=== PATIENT | female | born 1960 | race Caucasian/White ===

== ENCOUNTER → 2017-03-14 20:53 | Observation (INO) ==
[2017-03-14 17:01] VITALS: BP 133/74; RESP 18; TEMP 100.9; O2SAT 93
--- NOTE | 2017-03-14 17:08 | History & Physical Report ---
History of Present Illness Date: 03/14/17 Chief complaint: fever HPI: Lo Shirley is a 56 year old woman who presented to Dr. Fabian's office on 03/14/17 to establish care and to be checked out for intermittent subjective fever, intermittent nonproductive cough for the last two weeks. In the clinic, she had a fever of [address] Fabian ordered a KUB and CXR. The CXR showed right upper lobe collapse with a cavitary lesion, and arrangements were made for direct admission. Lo also reports occasional mild headaches and occasional lightheadedness. Food has been tasting terrible and her appetite has declined but she denies nausea, vomiting, diarrhea, or constipation. She has had on and off dull epigastric pain. She's also had some mid-back pain. She's been tired and fatigued. She denies any sick exposures - her friend (also named Lo) reports that her had a staph abscess a few weeks ago, but the patient doesn't think she had any exposure. She works as a outside medical sales representative, but most of her work is done from home and she only goes to the office 1 day per week. She denies chest pain, palpitations, congestion, sore throat, dysphagia, neck pain/stiffness, swelling or masses, rashes, bruising, dysuria, bleeding (GI or otherwise), leg swelling, body aches, or joint swelling. She has been overall healthy and is not on any prescription medications. Review of Systems All systems PM: 10-point ROS was reviewed, no additional remarkable complaints except - Constitutional Constitutional: Present: as per HPI, fatigue, fever(s), headache(s) - EENMT Eyes: Present: requires corrective lenses Nose: Absent: obstruction Mouth/Throat: Absent: sore throat, changes in swallowing, painful swallowing - Cardiovascular Cardiovascular: Absent: chest pain, palpitations, syncope Vascular: Absent: pedal edema - Respiratory Respiratory: Present: cough. Absent: dyspnea, dyspnea on exertion, wheezing - Gastrointestinal Gastrointestinal: Present: abdominal pain. Absent: change in stool character, constipation, diarrhea, dyspepsia, melena, nausea, vomiting - Genitourinary Genitourinary: Absent: dysuria Menstruation: post menopausal - Musculoskeletal Musculoskeletal: Present: back pain. Absent: abnormal gait, joint swelling - Integumentary/Breasts Integumentary: Absent: rash, wounds - Neurological Neurological: Present: headache(s). Absent: abnormal gait, abnormal speech, confusion, frequent falls, numbness, paresthesias - Psychiatric Psychiatric: Absent: abnormal sleep pattern, anxiety - Endocrine Endocrine: Absent: palpitations - Hematologic/Lymphatic Hematologic/Lymphatic: Absent: easy bleeding, easy bruising PFSH Denies Surgical History: . Appendectomy. Tonsillectomy Family History: Mother of lung cancer age 75. Also had DM. Father of CAD age 75. 1 younger brother - healthy. 1 half-sister - Crohn's MGF - DM MGM - of old age. PGF - unknown cancer PGM - of old age. - Social History Smoking status: Current every day smoker Packs per day: 1 Packs-years: 38 Substance use type: marijuana (occ. ) Alcohol intake frequency: does not drink Household members: spouse Current occupational status: employed Current occupation: outside medical sales representative - [employer] Social history: Has a cat and 2 dogs at home, up to date on immunizations. No recent travel. Medications Home Medications Medication Instructions Recorded Confirmed Type No known Home medications [No home 03/14/17 03/14/17 History meds] Allergies Allergy/AdvReac Type Severity Reaction Status Date / Time No Known Allergies Allergy Verified 03/14/17 17:03 Exam Vital Signs: Temperature 100.9 F H 03/14/17 16:59 Pulse Rate 118 H 03/14/17 16:59 Respiratory Rate 18 03/14/17 16:59 Blood Pressure 133/74 03/14/17 16:59 Pulse Oximetry 93 03/14/17 16:59 - Constitutional Present: no acute distress, well nourished, well developed - Routine HEENT Exam Head: Present: normocephalic, atraumatic Eye: Present: PERRL. Absent: conjunctival icterus, scleral injection ENT: Present: mucous membranes moist. Absent: oropharynx clear (dentures) - Routine Neck Exam Present: supple. Absent: lymphadenopathy, tenderness, swelling - Routine Respiratory Exam Present: diminished air movement (RUL) - Routine Cardiovascular Exam Present: RRR, S1, S2, murmur (2/6 systolic), tachycardia (118) - Routine Abdominal Exam Present: soft, normoactive bowel sounds, non distended - Routine Extremities Exam Present: no edema, pulses intact. Absent: joint swelling - Routine Back/Spine/Pelvis Exam Back/Spine: Present: full ROM - Routine Skin Exam Present: intact, dry, warm - Routine Neurological Exam Present: alert, oriented X3, CN II-XII intact, moving all extremities, vision grossly intact, hearing grossly intact, normal speech. Absent: motor deficit, facial asymmetry - Routine Psychiatric Exam Present: normal affect, normal thought process, cooperative Results - Labs CBC & Chem 7: 03/14/17 17:20 03/14/17 17:20 Assessment and Plan (1) Cavitary lesion of lung Current visit: Yes Status: Acute Assessment and Plan: Impression Cavitary lesion within collapsed right upper lobe R/O sepsis - leukocytosis, fever, tachycardia Hypokalemia, POA Hyponatremia, POA Transaminitis, POA Plan Admit, observation status. Labs done at Dr. Fabian's office will not be back today - will obtain CBC, CMP, TSH, lactate, PCT, UA, BC x2, urine antigens for strep and legionella. -WBC 27.9; lactate normal 1.2; Na low at 132; K low at 3.0; renal function stable --> CT chest with IV contrast. Consult Dr. Tinoco. Abx: Rocephin + azithromycin. DuoNeb PRN. IVF: NS 500 mL bolus. Consider liver sono. Check lipase with epigastric pain. Hypokalemia: KDur 40 mEq. Check mg. Consult RT for tobacco cessation. Declined nicotine patch. Discussed with Dr. Childs. 03/14/2017-I reviewed this chart, the patient history, and the [employer]END[employer]'s/PA's documented findings as above. We discussed and formulated the assessment and plan as above with the additions below.-Dr. Childs The patient is a previously healthy 56-year-old female. She was seen this evening accompanied by her daughter. The patient has a two-week history of cough, fever and shortness of breath. She's been having diaphoresis as well. She has not had any hemoptysis. She has minimal sputum. She has some mild epigastric pain. She denies any chest pain. She denies any weight loss. She denies any history of tuberculosis or contacts with tuberculosis. She has lived her entire life and [place]. She has not worked with the nursing home population or homeless population. She saw Dr. Fabian today for the first time regarding the above symptoms and he sent her to the hospital for chest x-ray. Chest x-ray revealed possible right upper lobe collapse from possible mass. The patient was direct admitted for evaluation. CT chest unfortunately shows a necrotic process invading the entire right upper lobe and the upper right mediastinum with at least 2 cavitary lesions. Leading diagnostic consideration is tuberculosis, although neoplasm cannot be excluded. Thoracic surgery consultation was suggested. I did speak with the patient regarding the above findings. She was agreeable to transfer to a tertiary care center with thoracic surgery available. On exam the patient is alert and oriented and in no acute distress. She appears her stated age. HEENT reveals sclerae to be anicteric and pupils are equal. Oropharynx is moist. Neck is supple. Chest reveals no rhonchi or crackles. No wheezing. Cardiovascular reveals a borderline tachycardic rate with a regular rhythm. Abdomen is soft and nontender. Extremities are free of edema. Skin is warm and diaphoretic. Pertinent labs shows white count 29.7, neutrophils 77, bands 11 Sodium 132, potassium 3.0, creatinine 0.6, BUN 13. Total bilirubin 1.8, AST 188, ALT 121, alkaline phosphatase 446 Lactate 1.2, pro-calcitonin 0.52, TSH 0.42. Magnesium 1.9. Lipase is normal Blood cultures have been obtained and are pending Impression Right upper lobe collapse with necrosis and at least 2 cavitary lesions. Possible mass with postobstructive pneumonia versus tuberculosis versus other Tachycardia, likely secondary to fever Hyponatremia Elevated liver enzymes Tobaccoism Fatigue Plan The patient was given Rocephin and azithromycin. Blood cultures were drawn. I did call and speak with Dr. Beau Ramirez, cardiothoracic surgeon at [facility]. He agreed with recommendations for transfer and was agreeable to consultation. I then called and spoke with a [facility] hospitalist Dr. Lott who accepted the patient in transfer. We'll transfer the patient by ambulance this evening. DVT Prophylaxis: SCD's Resuscitation Status: Full Code Hospital Course Summary Disclaimer: The visit summary below is not to be considered part of the above Progress Note. Hospital Course: 03/14/17 Impression Cavitary lesion within collapsed right upper lobe R/O sepsis - leukocytosis, fever, tachycardia Hypokalemia, POA Hyponatremia, POA Transaminitis, POA Plan Admit, observation status. Labs done at Dr. Fabian's office will not be back today - will obtain CBC, CMP, TSH, lactate, PCT, UA, BC x2, urine antigens for strep and legionella. -WBC 27.9; lactate normal 1.2; Na low at 132; K low at 3.0; renal function stable --> CT chest with IV contrast. Consult Dr. Tinoco. Abx: Rocephin + azithromycin. DuoNeb PRN. IVF: NS 500 mL bolus. Consider liver sono. Check lipase with epigastric pain. Hypokalemia: KDur 40 mEq. Check mg. Consult RT for tobacco cessation. Declined nicotine patch. Discussed with Dr. Childs.
[2017-03-14 17:42] VITALS: BMI 24.1
[2017-03-14 19:29] VITALS: PULSE 112
[~2017-03-14 20:53] MED LIST: ACETAMINOPHEN 500 MG TABLET PO PRN; ALBUTEROL/IPRATROPIUM 2.5mg-0.5mg/3ml NEB AEROSOL PRN; AZITHROMYCIN IV 500 MG in NS 250ml 250 ML IV SCH; CEFTRIAXONE 1 G in NS 100 ML IV SCH; IOHEXOL 300mg/ml 75ml INJECTION ONE; NICOTINE 21 MG PATCH TD PRN; NICOTINE PATCH REMOVAL TD PRN; NS 100 ML ONE; ONDANSETRON 4 MG/2 ML INJECTION IVP PRN; SALINE FLUSH 10ml SYRINGE IV PRN; SALINE FLUSH 10ml SYRINGE ONE
--- NOTE | 2017-03-16 10:52 | CT Scan Report ---
Indication: Right upper lobe collapse on chest x-ray, possible cavitation PROCEDURE: CT chest w con: Encounter: Initial Comparison: Chest x-ray from the same date Technique: Axial CT images were performed through the chest after the administration of intravenous contrast. Coronal and sagittal two-dimensional reformats. Automated Exposure Control and Iterative Reconstruction dose reducing techniques were utilized. Contrast: Omnipaque 300 74 mL Findings: The right upper lobe collapse seen by x-ray is confirmed. There is gas in some of the bronchi with air bronchograms and also foci of cavitation. The largest area of cavitation measures 1.5 cm in size on axial image #15. There is also some groundglass opacity and septal thickening seen in the right middle lobe. The contralateral left upper lobe is clear with mild paraseptal emphysema. The right lower lobe is clear. No pneumothorax. No pleural effusion. The right upper lobe bronchi are almost entirely occluded. The remaining airways are patent. No axillary adenopathy. There are enlarged centrally low attenuation lymph node seen in the right paratracheal region measuring up to 1.6 cm short axis dimension. There is soft tissue infiltration of the right aspect of the mediastinum and hilum which is difficult to precisely measure. The heart size is normal. No pericardial effusion. The upper abdomen shows fatty infiltration of the liver along the falciform ligament but no acute findings. There is an area of cortical scarring and calcification in the left kidney. There is thickening of both adrenal glands possibly representing adenomatous hyperplasia. Bone windows show no lytic or blastic osseous lesions. Impression: Complete collapse of the right upper lobe with areas of cavitation and associated mediastinal adenopathy/mass. Differential considerations include lung or mediastinal malignancy with postobstructive cavitary pneumonia and Atypical/fungal infection including mycobacterium tuberculosis. Recommend respiratory precautions and testing for tuberculosis. Pulmonology and/or thoracic surgical consultation may also be helpful. There is a preliminary report by [facility]. The critical findings were discussed with the ordering physician at 1854 on March 14, 2017 by the virtual radiologic physician Dr. Adamson. .
== END | disposition short-term general hospital (02) ==
LOC: MED
PROVIDERS: ADMIT Internal Medicine; ATTEND Internal Medicine